=== PATIENT | female | born 1965 | race Caucasian/White ===

== ENCOUNTER 2017-08-23 06:06 | Day surgery (SDC) | payer MEDICAID ==
[2017-08-23 06:36] VITALS: BMI 27.2
[2017-08-23 07:54] VITALS: O2SAT 100
[2017-08-23] MEDS ORDERED: Propofol 10 mg/ml Inj (20 ML) ONE ×2 (07:56→07:57)
[2017-08-23 08:53] VITALS: BP 125/87; PULSE 78; RESP 18; TEMP 98
== END 2017-08-23 09:20 | disposition home or self-care (01) ==
LOC: C.ENDO 06:06
PROVIDERS: ATTEND Internal Medicine
DX: K64.8 Other hemorrhoids (principal); Z80.0 Family history of malignant neoplasm of digestive organs; K59.09 Other constipation; R14.0 Abdominal distension (gaseous)
CPT/HCPCS: 45378; J2704